=== PATIENT | male | born 1945 | race Caucasian/White ===

== ENCOUNTER 2017-12-22 08:43 | Day surgery (SDC) | payer MEDICARE, BC ==
[~2017-12-22] VITALS: Ht 180.3 cm; Wt 97.5 kg
[~2017-12-22 08:43] MED LIST: ALLOPURINOL300 MG PO; ASPIRIN81 MG PO; CARAFATE1 GM PO; IRON325 M1 PO; METOPROL TAR25 MG PO; MULTI VIT PO; NITROGLYCER0.4 MG/HR TD; PROTONIX40 M4; SIMVASTATIN40 MG PO; VITAMI16 PO; VITAMIN B-12500 MCG IJ; XARELTO10 MG PO
[2017-12-22 12:35] VITALS: BP 110/68
== END 2017-12-22 12:44 | disposition home or self-care (01) ==
LOC: ENDO 08:43 → ORM 09:00 → ENDO 09:00
PROVIDERS: ATTEND Internal Medicine Gastroenterology
PROC: 0DBL8ZX Excision of Transverse Colon, Via Natural or Artificial Opening Endoscopic, Diagnostic (ICD-10-PCS; principal; 2017-12-22)
DX: Z12.11 Encounter for screening for malignant neoplasm of colon (principal); D12.3 Benign neoplasm of transverse colon; K64.8 Other hemorrhoids; K64.4 Residual hemorrhoidal skin tags; I10 Essential (primary) hypertension; E11.9 Type 2 diabetes mellitus without complications; I25.10 Atherosclerotic heart disease of native coronary artery without angina pectoris; I25.2 Old myocardial infarction; E78.00 Pure hypercholesterolemia, unspecified; Z85.46 Personal history of malignant neoplasm of prostate; Z98.84 Bariatric surgery status; Z86.010 Personal history of colon polyps